=== PATIENT | male | born 1960 | race Hispanic/Latino ===

== ENCOUNTER → 2018-01-01 | Day surgery (SDC) | payer OTHER ==
[2017-12-31 10:44] VITALS: BMI 20.1
[~2018-01-01] MED LIST: Dexamethasone 20 MG/5 ML VIAL ONE; EPINEPHrine 1 MG/ML AMP ONE; Fentanyl 100 MCG/2 ML VIAL ONE; Fentanyl 250 MCG/5 ML VIAL ONE; Lidocaine 1% PF 5 ML VIAL ONE; Midazolam HCl 2 mg/2 ml Vial ONE; PROPOFOL 200 MG/20 ML VIAL ONE; Scopolamine 1.5 mg/72 hour Patch ONE; Succinylcholine Chloride 20 MG/ML 10 ml SYRINGE FS ONE; methylPREDNISolone Acetate 40 mg/ml Vial ONE
--- NOTE | 2018-01-02 01:12 | OP ---
PREOPERATIVE DIAGNOSES: 1. Left neck squamous cell carcinoma. 2. Tumor of unknown origin. POSTOPERATIVE DIAGNOSES: 1. Left neck squamous cell carcinoma. 2. Tumor of unknown origin. PROCEDURES: 1. Direct laryngoscopy with biopsies. 2. Bilateral tonsillectomy. SURGEON: Garland Mejia MD ESTIMATED BLOOD LOSS: Less than 5 mL. COMPLICATIONS: None. ANESTHESIA: GETA. PROCEDURE IN DETAIL: The patient was taken to the operating room and placed on the table. General e ndotracheal anesthesia was obtained by the Anesthesia staff. Tube was secured in the midline. Follow ing this, the head of bed was turned. Shoulder roll was placed. A Dedo laryngoscope was used to exa mine the oral cavity, oropharynx was noted to be clear of lesions. The tonsils were small. There ar e no obvious lesions. Throat was examined with the Dedo laryngoscope as well as bimanual palpation s howed no concerning lesions of the mucosa or submucosa. The hypopharyngeal area, piriform sinuses, p ostcricoid area, vallecula, epiglottis, and true vocal cords all appeared within normal limits. A cu rved Allis was used to grasp the tonsils and medialize the tonsil as a Bovie electrocautery was used to perform a subcapsular. Hemostasis was of control and was irrigated. The patient tolerated the pr ocedure well.
--- NOTE | 2018-01-02 06:22 | EKG ---
Test Reason : PREOP Blood Pressure : / mmHG Vent. Rate : 056 BPM Atrial Rate : 056 BPM P-R Int : 144 ms QRS Dur : 082 ms QT Int : 454 ms P-R-T Axes : 075 088 076 degrees QTc Int : 438 ms Sinus bradycardia Otherwise normal ECG No previous ECGs available Confirmed by KAVIN GALVEZ ([id number]) on 01/02/2018 6:03:25 AM Referred By: BEAR Confirmed By:KAVIN GALVEZ
== END ==
LOC: SDC 08:48
PROVIDERS: ATTEND Otolaryngology Plastic Surgery within the Head & Neck
PROC: 0CTPXZZ Resection of Tonsils, External Approach (ICD-10-PCS; principal; 2018-01-01)
PROC: 0CJS8ZZ Inspection of Larynx, Via Natural or Artificial Opening Endoscopic (ICD-10-PCS; principal; 2018-01-01)
DX: J35.1 Hypertrophy of tonsils (principal); C76.0 Malignant neoplasm of head, face and neck; F17.210 Nicotine dependence, cigarettes, uncomplicated; D63.0 Anemia in neoplastic disease; K74.60 Unspecified cirrhosis of liver; F10.11 Alcohol abuse, in remission; F12.11 Cannabis abuse, in remission; F14.11 Cocaine abuse, in remission; F15.11 Other stimulant abuse, in remission; F31.9 Bipolar disorder, unspecified; F20.9 Schizophrenia, unspecified; Z98.890 Other specified postprocedural states
CPT/HCPCS: 88305; 93005; 93010; 96374; J0171; J1030; J1100; J2001; J2250; J2704; J3010